=== PATIENT | female | born 1990 | race Caucasian/White ===

== ENCOUNTER 2016-10-17 14:21 | Emergency (ER) | payer BC ==
[~2016-10-17] VITALS: Ht 162.6 cm; Wt 154.5 kg
[~2016-10-17 14:21] MED LIST: FLONASE NASAL S16 GM; LAC-HYDRIN121 TP; ORTHO TRI-CYCLE1 TAB PO; PERCOCET 325 MG1 TA2 PO; ULTRAM 50MG TAB50 MG PO; ZITHROMAX500 M2 PO
[2016-10-17 14:35] VITALS: BP 130/87; PULSE 103; TEMP 97.9
[2016-10-17] MEDS ORDERED: NORVASC 5MG5 MG/TAB PO (16:27)
[2016-10-17] MEDS ORDERED: GLUMETZA500 MG PO (16:29)
== END 2016-10-17 17:03 | disposition home or self-care (01) ==
LOC: COL.ER 14:21
DX: S93.401A Sprain of unspecified ligament of right ankle, initial encounter (principal); S90.511A Abrasion, right ankle, initial encounter; W10.9XXA Fall (on) (from) unspecified stairs and steps, initial encounter; W22.8XXA Striking against or struck by other objects, initial encounter; E11.9 Type 2 diabetes mellitus without complications; Z79.84 Long term (current) use of oral hypoglycemic drugs; I10 Essential (primary) hypertension

== ENCOUNTER → 2017-01-19 | Outpatient (CLI) | payer BC ==
[~2017-01-19] MED LIST changes: +GLUMETZA500 MG PO; +NORVASC 5MG5 MG/TAB PO
== END ==
LOC: COL.RAD 09:44
DX: R94.5 Abnormal results of liver function studies (principal)

== ENCOUNTER 2017-10-23 15:07 | Emergency (ER) | payer BC ==
[~2017-10-23] VITALS: Ht 162.6 cm; Wt 120.9 kg
[2017-10-23 15:09] VITALS: TEMP 98
[2017-10-23] MEDS ORDERED: TRICOR 48MG48 MG PO (15:30)
[2017-10-23] MEDS ORDERED: LEXAPRO20 MG PO (15:31)
[2017-10-23 15:46] LABS: BASO # 0.1 (0.0-0.2); BASO % 0.9 % (0.0-2.0); EOS # 0.1 (0.0-0.7); EOS % 1.2 % (0-4.0); GRAN % 64.8 % (42.2-75.2); HEMATOCRIT 40.7 % (37.0-47.0); HEMOGLOBIN 13.5 g/dl (12.5-16.0); LYMPH # 2.8 (1.2-3.4); LYMPH % 26.5 % (20.0-51.0); MEAN CELL VOLUME 86 fl (80.0-100.0); MEAN CORPUSCULAR HEMOGLOBIN 28 pg (27.0-31.0); MEAN CORPUSCULAR HGB CONC 33 g/dl (33.0-37.0); MEAN PLATELET VOLUME 11.6 fl (7.4-10.4); MONO # 0.7 (0.1-0.6); MONO % 6.3 % (1.7-9.3); PLATELET COUNT 276 K/mm3 (130-400); RED BLOOD COUNT 4.76 M/mm3 (4.10-5.30); REDCELL DISTRIBUTION WIDTH-CV 13.2 % (11.5-14.5)
[2017-10-23 15:59] LABS: ALBUMIN 4.2 gm/dL (3.5-5.0); CALCIUM 9.1 mg/dL (8.4-10.2); CREATININE, serum 0.75 mg/dL (0.52-1.25); POTASSIUM 3.8 mmol/L (3.4-5.0); TOTAL PROTEIN 7.4 gm/dL (6.4-8.2)
[2017-10-23 16:04] LABS: COLLECTION METHOD CLEAN CATCH
[2017-10-23 16:10] LABS: MUCOUS Present /lpf; PH 5 (5-8); SQUAMOUS EPITHELIAL 0-2 /hpf; URINE APPEARANCE Clear; URINE BACTERIA None Seen /hpf; URINE BILIRUBIN Negative (NEGATIVE); URINE BLOOD Negative (NEGATIVE); URINE COLOR Amber; URINE GLUCOSE Negative (NEGATIVE); URINE KETONE Negative (NEGATIVE); URINE LEUKOCYTE ESTERASE Negative (NEGATIVE); URINE NITRATE Negative (NEGATIVE); URINE PROTEIN(semi-quant) Negative (NEGATIVE); URINE RBC 0-2 /hpf; URINE UROBILINOGEN >=4.0 mg/dL (NEGATIVE)
[2017-10-23] MEDS ORDERED: ZOFRAN ODT4 MG PO (17:11)
[2017-10-23] MEDS ORDERED: NORCO 325 MG-51 TAB PO (17:11)
[2017-10-23 17:25] VITALS: BP 122/75; PULSE 60
== END 2017-10-23 17:27 | disposition home or self-care (01) ==
LOC: COL.ER 15:07
PROVIDERS: Emergency Medicine
DX: K81.0 Acute cholecystitis (principal); E11.9 Type 2 diabetes mellitus without complications; I10 Essential (primary) hypertension; E78.5 Hyperlipidemia, unspecified; F17.210 Nicotine dependence, cigarettes, uncomplicated; Z98.890 Other specified postprocedural states; Z83.79 Family history of other diseases of the digestive system
CPT/HCPCS: J2765; J3010; J7030; Q9967

== ENCOUNTER → 2017-10-27 | Outpatient (CLI) | payer BC ==
[~2017-10-27] MED LIST changes: +LEXAPRO20 MG PO; +NORCO 325 MG-51 TAB PO; +TRICOR 48MG48 MG PO; +ZOFRAN ODT4 MG PO
== END ==
LOC: COL.RAD 10:57
DX: Z01.89 Encounter for other specified special examinations (principal)

== ENCOUNTER → 2017-11-03 | Outpatient (CLI) | payer BC | LOC: COL.RAD 08:13 | DX: R16.0 Hepatomegaly, not elsewhere classified (principal); R10.11 Right upper quadrant pain; Z98.84 Bariatric surgery status ==

== ENCOUNTER → 2017-11-17 | Outpatient (CLI) | payer BC | LOC: COL.RAD 06:01 | DX: K82.8 Other specified diseases of gallbladder (principal) | CPT/HCPCS: A9537 ==

== ENCOUNTER 2018-05-13 18:00 | Emergency (ER) | payer BC ==
[~2018-05-13] VITALS: Ht 162.6 cm; Wt 103.6 kg
[2018-05-13 18:04] VITALS: BP 122/80; PULSE 65; TEMP 98.6
[2018-05-13] MEDS ORDERED: D-2000 90 MG-201 TAB PO (18:15)
[2018-05-13] MEDS ORDERED: MULTI VITAMINS1 TAB PO (18:15)
[2018-05-13] MEDS ORDERED: PRENA1 CHEW1 CT1 PO (18:15)
[2018-05-13] MEDS ORDERED: CYMBALTA 30MG30 MG PO (18:15)
== END 2018-05-13 18:55 | disposition home or self-care (01) ==
LOC: COL.ER 18:00
DX: S62.647A Nondisplaced fracture of proximal phalanx of left little finger, initial encounter for closed fracture (principal); F17.210 Nicotine dependence, cigarettes, uncomplicated; Z90.49 Acquired absence of other specified parts of digestive tract; Z88.0 Allergy status to penicillin; W10.9XXA Fall (on) (from) unspecified stairs and steps, initial encounter; Y92.009 Unspecified place in unspecified non-institutional (private) residence as the place of occurrence of the external cause

== ENCOUNTER 2018-08-06 16:30 | Outpatient (RCR) | payer BC ==
[~2018-08-06 16:30] MED LIST changes: +CYMBALTA 30MG30 MG PO; +D-2000 90 MG-201 TAB PO; +MULTI VITAMINS1 TAB PO; +PRENA1 CHEW1 CT1 PO
== END 2018-10-28 | disposition home or self-care (01) ==
LOC: MKS.ESL.OT
DX: S62.647D Nondisplaced fracture of proximal phalanx of left little finger, subsequent encounter for fracture with routine healing (principal); Z96.7 Presence of other bone and tendon implants

== ENCOUNTER 2022-06-14 14:09 | Emergency (ER) | payer BC ==
[~2022-06-14] VITALS: Ht 162.6 cm; Wt 100.0 kg
[~2022-06-14 14:09] MED LIST changes: -D-2000 90 MG-201 TAB PO; +MASON NATURAL2000 IU PO
[2022-06-14 14:18] VITALS: TEMP 98.2
[2022-06-14] MEDS ORDERED: FLEXERIL5 MG (15:35)
[2022-06-14] MEDS ORDERED: ZOLOFT 50MG50 MG PO (15:35)
[2022-06-14] MEDS ORDERED: FOLIC ACID 40400 MCG (15:35)
[2022-06-14] MEDS ORDERED: PRILOTC (15:36)
[2022-06-14 15:52] LABS: BASO # 0.1 K/mm3 (0.0-0.2); BASO % 1.4 % (0.0-2.0); EOS # 0.5 K/mm3 (0.0-0.7); EOS % 5.8 % (0.0-4.0); GRAN % 50.5 % (42.2-75.2); HEMATOCRIT 37.7 % (37.0-47.0); HEMOGLOBIN 12.8 g/dl (12.5-16.0); LYMPH % 37.6 % (20.0-51.0); MEAN CELL VOLUME 82 fl (80.0-100.0); MEAN CORPUSCULAR HEMOGLOBIN 28 pg (27-31); MEAN CORPUSCULAR HGB CONC 34 g/dl (33.0-37.0); MEAN PLATELET VOLUME 10.4 fl (7.4-10.4); MONO # 0.4 K/mm3 (0.1-0.6); MONO % 4.6 % (1.7-9.3); PLATELET COUNT 300 K/mm3 (130-400); RED BLOOD COUNT 4.58 M/mm3 (4.10-5.30); REDCELL DISTRIBUTION WIDTH-CV 14.6 % (11.5-14.5)
[2022-06-14 16:08] LABS: BILIRUBIN,TOTAL 0.4 mg/dL (0.2-1.2); POTASSIUM 4.1 mmol/L (3.5-4.5)
[2022-06-14 16:19] LABS: TROPONIN-I 0.011 ng/mL (0.00-0.033)
[2022-06-14 16:30] LABS: ALBUMIN 3.7 gm/dL (3.5-5.0); CREATININE, serum 0.79 mg/dL (0.57-1.11); TOTAL PROTEIN 6.7 gm/dL (6.2-8.1)
[2022-06-14 18:00] VITALS: BP 133/81
[2022-06-14 18:45] VITALS: PULSE 70
== END 2022-06-14 18:49 | disposition home or self-care (01) ==
LOC: COL.ER 14:09
PROVIDERS: Nurse Practitioner
DX: R07.89 Other chest pain (principal); F17.200 Nicotine dependence, unspecified, uncomplicated
CPT/HCPCS: Q9967

== ENCOUNTER 2022-07-15 15:08 | Outpatient (RCR) | payer BC ==
[~2022-07-15 15:08] MED LIST changes: +FLEXERIL5 MG; +FOLIC ACID 40400 MCG; +PRILOTC; +ZOLOFT 50MG50 MG PO
== END 2022-08-08 | disposition home or self-care (01) ==
LOC: MKS.ESL.OT
DX: G56.01 Carpal tunnel syndrome, right upper limb (principal)

== ENCOUNTER 2022-11-07 15:00 | Outpatient (RCR) | payer BC | END 2022-11-08 | disposition home or self-care (01) | LOC: MKS.ESL.OT | DX: M25.531 Pain in right wrist (principal); M25.521 Pain in right elbow ==

== ENCOUNTER → 2022-11-22 | Outpatient (CLI) | payer BC | LOC: COL.RAD 15:26 | DX: M25.562 Pain in left knee (principal) ==